=== PATIENT | female | born 2000 | race Caucasian/White ===

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

== ENCOUNTER 2024-02-17 06:05 | Day surgery (SDC) | payer BC, OTHER ==
[~2024-02-17 06:05] MED LIST: Lactated Ringers 1,000 ML IV SCH; Sodium Chloride 0.9% 10 ML Syringe FLUSH PRN; Sodium Chloride 0.9% 10 ML Syringe FLUSH SCH
[2024-02-17] MEDS ORDERED: fentaNYL 100 MCG/2 ML SDV ONE (06:13)
[2024-02-17] MEDS ORDERED: Midazolam 1 MG/ML 2 ML SDV ONE (06:14)
[2024-02-17] MEDS ORDERED: Propofol 200 MG/20 ML SDV ONE (06:15)
[2024-02-17] MEDS ORDERED: Lidocaine 2% 5 ML SDV ONE (06:16)
[2024-02-17] MEDS ORDERED: Dexamethasone 4 MG/ML 5 ML MDV ONE (06:27)
[2024-02-17] MEDS ORDERED: Ondansetron 4 MG/2 ML SDV ONE (06:27)
[2024-02-17] MEDS ORDERED: Ketorolac 30 MG/ML SDV ONE (06:27)
[2024-02-17] MEDS ORDERED: Lidocaine 0.5% 50 ML SDV ONE (06:39)
[2024-02-17] MEDS ORDERED: Ondansetron 4 MG/2 ML SDV IVPUSH PRN (07:03)
[2024-02-17] MEDS ORDERED: HYDROmorphone 0.5 MG/0.5 ML Syringe IVPUSH PRN (07:03)
[2024-02-17] MEDS ORDERED: fentaNYL 100 MCG/2 ML SDV IVPUSH PRN (07:03)
[2024-02-17] MEDS ORDERED: ceFAZolin 2 GM Vial ONE (07:30)
[2024-02-17] MEDS: Bupivacaine 0.25% 10 ML SDV ONE (14:22)
== END 2024-02-17 08:40 | disposition home or self-care (01) ==
LOC: JD.SDS 06:05
PROVIDERS: ATTEND Orthopaedic Surgery
DX: M67.431 Ganglion, right wrist (principal); E78.00 Pure hypercholesterolemia, unspecified; J35.1 Hypertrophy of tonsils; G47.8 Other sleep disorders; G47.00 Insomnia, unspecified; Z79.899 Other long term (current) drug therapy
CPT/HCPCS: 25111; 81025; J0665; J0690; J1100; J1885; J2250; J2405; J2704; J3010; 01810; J3490

== ENCOUNTER 2024-06-23 20:34 | Emergency (ER) | payer OTHER ==
[2024-06-23] MEDS: Ketorolac 10 MG Tab PO ONE (21:46)
== END 2024-06-23 21:49 | disposition home or self-care (01) ==
LOC: JD.ED 20:34
DX: S69.91XA Unspecified injury of right wrist, hand and finger(s), initial encounter (principal); F17.210 Nicotine dependence, cigarettes, uncomplicated; Z79.899 Other long term (current) drug therapy; Z86.16 Personal history of COVID-19; W18.11XA Fall from or off toilet without subsequent striking against object, initial encounter; Y93.89 Activity, other specified; Y99.0 Civilian activity done for income or pay
CPT/HCPCS: 73130; 99283; A9270